=== PATIENT | female | born 1945 | race Caucasian/White ===

== ENCOUNTER → 2018-10-31 | Outpatient (CLI) | payer OTHER, MEDICARE ==
[~2018-10-31] MED LIST: ASPIR 8181 MG PO; AVAPRO300 MG PO; BENADRYL25 MG PO; BIOTIN2500 MCG PO; BYSTOLIC 5 MG5 M1 PO; MULTIVITAMINS1 EAC7 PO; VITAMIN D1000 UNI1 PO; VITAMINC500 PO
[2018-10-31 09:34] LABS: CREATININE 0.8 mg/dL (0.6-1.0)
== END ==
LOC: CAT 08:51
PROVIDERS: Family Medicine
DX: K76.89 Other specified diseases of liver (principal); K42.9 Umbilical hernia without obstruction or gangrene; K57.30 Diverticulosis of large intestine without perforation or abscess without bleeding; I70.0 Atherosclerosis of aorta; M51.87 Other intervertebral disc disorders, lumbosacral region; Z90.710 Acquired absence of both cervix and uterus; Z88.8 Allergy status to other drugs, medicaments and biological substances; Z88.0 Allergy status to penicillin; Z88.2 Allergy status to sulfonamides; Z88.5 Allergy status to narcotic agent; Z88.1 Allergy status to other antibiotic agents

== ENCOUNTER → 2020-02-20 | Outpatient (CLI) | payer OTHER, MEDICARE | LOC: SJCVC 10:19 | PROVIDERS: ATTEND Internal Medicine Cardiovascular Disease | DX: I25.119 Atherosclerotic heart disease of native coronary artery with unspecified angina pectoris (principal); R93.1 Abnormal findings on diagnostic imaging of heart and coronary circulation; I10 Essential (primary) hypertension; E78.00 Pure hypercholesterolemia, unspecified; Z82.49 Family history of ischemic heart disease and other diseases of the circulatory system; Z78.9 Other specified health status; Z79.82 Long term (current) use of aspirin; Z79.899 Other long term (current) drug therapy ==

== ENCOUNTER → 2020-11-25 | Outpatient (CLI) | payer OTHER, MEDICARE | LOC: SJCVCIMAG 11-19 08:36 | PROVIDERS: ATTEND Internal Medicine Cardiovascular Disease | DX: I25.10 Atherosclerotic heart disease of native coronary artery without angina pectoris (principal); I49.3 Ventricular premature depolarization; R06.00 Dyspnea, unspecified; R51.9 Headache, unspecified; Z79.82 Long term (current) use of aspirin; Z79.899 Other long term (current) drug therapy ==

== ENCOUNTER → 2021-02-17 | Outpatient (CLI) | payer OTHER, MEDICARE ==
[~2021-02-17] MED LIST changes: +ASA81BEC PO; +CALCIUM CITRAT250 MG PO; +MAGNESIUM L-LAC84 MG PO; +MULTI VITAMIN1 EACH PO; +PREDNISONE 10 M10 MG PO
== END ==
LOC: LAB 06:43
PROVIDERS: ATTEND Student in an Organized Health Care Education/Training Program
DX: Z20.822 Contact with and (suspected) exposure to COVID-19 (principal)

== ENCOUNTER → 2021-02-19 | Outpatient (CLI) | payer OTHER, MEDICARE ==
[~2021-02-19] VITALS: Ht 160 cm; Wt 81.7 kg
--- NOTE | ~2021-02-19 | P ---
[facility] [place] [address] [place] [address] PROCEDURE REPORT Name: DRAKE BOWLES Room #: REG [facility].#: [id number] Admission: 02/19/21 Attend Phys: Pérez Almanza Discharge: Date of : 45 Report #: [id number] THIS REPORT FOR: cc: Kingston Cheatham MD, Neal A. MD McElhinney, Christian C. MD ~ cc: Kingston Cheatham MD DATE OF SERVICE: 02/19/2021 PROCEDURE PERFORMED: Colonoscopy with biopsies. HISTORY OF PRESENT ILLNESS: The patient is a 75-year-old female with a history of colon polyps, here for a 5-year followup. Denies any symptoms. Possible family history of colon cancer in an aunt. DESCRIPTION OF PROCEDURE: The risks and benefits of the procedure were explained to the patient, those risks including, but not limited to bleeding, perforation, and the risk of sedation. She understood these risks and gave me informed consent. Sedation was given using propofol per anesthesia. Next, a digital rectal exam was initially performed, which was normal. Next, using a standard Olympus colonoscope, the scope was placed in the patient's anus and advanced under direct vision to the cecum. The overall prep was good. The cecum and ileocecal valve were normal in appearance. Ascending and transverse colon were normal. In the descending colon, a 5 mm sessile polyp was noted. This was removed with cold forceps, otherwise normal. Multiple diverticula were noted in the sigmoid colon, two 3-4 mm sessile polyps also noted and removed with cold forceps. The rectal mucosa was normal. On retroflexion, small nonbleeding internal hemorrhoids noted. The scope was then withdrawn and the procedure terminated. The patient tolerated the procedure well. IMPRESSION: 1. Three small colonic polyps. 2. Sigmoid diverticulosis. 3. Small internal hemorrhoids. 4. Otherwise, normal colonoscopy. RECOMMENDATIONS: 1. Await biopsy results. 2. Repeat colonoscopy in [address] [address] PROCEDURE REPORT Name: DRAKE BOWLES Room #: REG Rahul Richardson#: [id number] Admission: 02/19/21 Attend Phys: Pérez Almanza Discharge: Date of : 45 Report #: [id number] Thank you for allowing me to participate in her care. By: [id number] Pérez Lara MD /nt
--- NOTE | 2021-02-20 18:06 | PATH ---
[facility] [place] [address] PATHOLOGY RPT PROCEDURE Name: DRAKE BOWLES Room #: REG [facility] [place].#: [id number] Admission: 02/19/21 Date of : 45 Discharge: Report #: [id number] Path Case #: [id number] [facility] Accession Number: [id number] . 01 Material submitted: . PART A: colon - DESCENDING COLON POLYP. Modifiers: descending PART B: sigmoid colon - SIGMOID COLON POLYP X2. Modifiers: X2 . 01 Clinical history: . COLONOSCOPY/HX OF POLYPS . 02 Diagnosis: A. Polyp, descending colon, endoscopic biopsy: - Hyperplastic polyp. - Negative for dysplasia. . B. Polyp x2, sigmoid colon polyp, endoscopic biopsy: - Hyperplastic polyp identified in both fragments sampled. - Negative for dysplasia. . (IUV:mml; 02/20/2021) QLM 02/20/2021 1518 Local . 02 Electronically signed: . Samia Retana MD, Pathologist NPI- [id number] . 01 Gross description: . A. The specimen is submitted in formalin, labeled "Drake Bowles, descending colon polyp". Received are 2 segments of pale harper tissue ranging in size from 0.2 to 0.4 cm in maximum dimensions. The specimen is submitted in cassette A1. . B. The specimen is submitted in formalin, labeled "Drake Bowles, sigmoid polyp x2". Received are 2 segments of pale harper tissue ranging in size from 0.2 to 0.3 cm in maximum dimensions. The specimen is submitted in cassette B1. ([facility]; 02/19/2021) NRI/NRI 02/19/2021 1800 Local . 02 Pathologist provided ICD-10: K63.5 . 02 CPT . 106548, 244340 Specimen Comment: A courtesy copy of this report has been sent to [phone], [phone] [phone] PATHOLOGY RPT PROCEDURE Name: DRAKE BOWLES Room #: REG [facility]#: [id number] Admission: 02/19/21 Date of : 45 Discharge: Report #: [id number] Path Case #: [id number] Specimen Comment: [id number] Specimen Comment: Report sent to / DR FOX Performed at: [address], [place], [place] [id number] MD Maximo Guadalupe MD Phone: [phone] Performed at: [address] [id number] MD Samia Retana MD Phone: [phone]
== END | disposition home or self-care (01) ==
LOC: GI 09:06
PROVIDERS: ATTEND Specialist
DX: Z12.11 Encounter for screening for malignant neoplasm of colon (principal); Z86.010 Personal history of colon polyps; K63.5 Polyp of colon; I10 Essential (primary) hypertension; K57.30 Diverticulosis of large intestine without perforation or abscess without bleeding; K64.8 Other hemorrhoids; Z98.890 Other specified postprocedural states; Z79.899 Other long term (current) drug therapy; Z90.710 Acquired absence of both cervix and uterus; Z88.0 Allergy status to penicillin; Z88.2 Allergy status to sulfonamides; Z88.8 Allergy status to other drugs, medicaments and biological substances
CPT/HCPCS: 62110; 62900